=== PATIENT | male | born 1950 | race Caucasian/White ===

== ENCOUNTER → 2024-03-03 09:10 | Outpatient (CLI) | payer MEDICARE, SELFPAY ==
--- NOTE | 2024-03-03 | DI.ECHO.S_ITS ---
[facility]---------+ [facility] : : [address] : : [place] : : [id number] : : Phone: [phone] Echocardiogram Report + + :Name: PARMJIT ELLIS Study Date: 03/03/2024 Height: 76 in : :Hospital ReadingLocation: Weight: 250 lb : : Gender: Male BSA: 2.4 m2 : :: 1950 Age: 73 yrs BP: 134/74 mmHg: :Reason For Study: OLD MYOCARDIAL INFARCTION : :Ordering Physician: UNIQUE, : :RADAMES Performed By: Flory Woodard : :Referring: RADAMES UPTON : + + Interpretation Summary The left ventricle is normal in size and wall thickness. The ejection fraction is estimated to be 50-55%. There are no obvious focal wall motion abnormalities noted but poor endocardial definition reduces the sensitivity for the detection of such. Procedure: Images were not obtained from all of the standard acoustic windows due to the limited scope of the study. The study quality was technically adequate. A contrast injection of Definity was performed to improve assessment of LV function. Comparison is made with the echocardiogram of 09/17/2023. The patient was in sinus bradycardia with heart rates between 47-50 bpm during the exam. Left Ventricle: The left ventricle is normal in size and wall thickness. The ejection fraction is estimated to be 50-55%. There are no obvious focal wall motion abnormalities noted but poor endocardial definition reduces the sensitivity for the detection of such. Aortic Valve: The aortic valve is trileaflet. The aortic valve is mildly calcified. Great Vessels: The aortic root is normal size. The dimensions of the ascending aorta are normal. Pericardium/ Pleura There is no pericardial effusion. There is no pleural effusion. MMode/2D Measurements & Calculations LVIDd: 5.8 cm IVC diam: 1.6 cm LVIDs: 3.8 cm FS: 35.6 % IVSd: 0.70 cm LVPWd: 0.65 cm LV villagomez. diameter/BSA (cm/m^2): 2.4 LV sys. diameter/BSA (cm/m^2): 1.5 Doppler Measurements & Calculations PA pr(Accel): 31.0 mmHg Reading Physician:02:49 PM
== END ==
PROVIDERS: PCP Internal Medicine; Referring Provider Internal Medicine Cardiovascular Disease; Visit Provider Internal Medicine Cardiovascular Disease
DX: I25.10 Atherosclerotic heart disease of native coronary artery without angina pectoris (principal); I25.2 Old myocardial infarction
CPT/HCPCS: 93307; Q9957